=== PATIENT | female | born 1995 | race Caucasian/White ===

== ENCOUNTER → 2018-07-12 | Outpatient (CLI) | payer OTHER | END | disposition home or self-care (01) | LOC: LAB SHORT 12:28 → PLD 12:28 | DX: R87.611 Atypical squamous cells cannot exclude high grade squamous intraepithelial lesion on cytologic smear of cervix (ASC-H) (principal) | CPT/HCPCS: 88305 ==

== ENCOUNTER → 2018-08-30 | Outpatient (CLI) | payer OTHER | END | disposition home or self-care (01) | LOC: LAB SHORT 12:43 → PLD 12:43 | DX: D06.9 Carcinoma in situ of cervix, unspecified (principal) | CPT/HCPCS: 88307 ==

== ENCOUNTER → 2019-06-12 | Outpatient (CLI) | payer OTHER ==
[2019-06-12 17:26] LABS: Source, Urine Clean Catch
[2019-06-12 18:53] LABS: Bilirubin, Urine Neg (Neg); Blood, Urine 3+ (Neg); Glucose Qualitative, Urine Neg (Neg); Ketones, Urine Neg (Neg); Leukocyte Esterase, Urine 2+ (Neg); Nitrite, Urine Neg (Neg); Protein, Urine Neg (Neg); Urobilinogen, Urine NORM (Normal)
[2019-06-12 19:08] LABS: Appearance, Urine Hazy (Clear); Color, Urine Amber (P-Yellow)
[2019-06-12 19:09] LABS: Amorphous Light (0-Heavy); Bacteria Many /hpf; Mucus Mod (0-Heavy); Squamous Epithelial Cells Mod /hpf (Few)
== END | disposition home or self-care (01) ==
LOC: LAB SHORT 15:40 → LAB 15:40
PROVIDERS: Obstetrics & Gynecology
DX: N89.8 Other specified noninflammatory disorders of vagina (principal)
CPT/HCPCS: 81001; 87086

== ENCOUNTER 2020-06-08 13:21 | Emergency (ER) | payer OTHER ==
[~2020-06-08] VITALS: Ht 167.6 cm; Wt 90.7 kg
[2020-06-08] MEDS ORDERED: Depo-Prove150 MG/11 IM (14:44)
[2020-06-08] MEDS ORDERED: Ativan1 MG PO (14:59)
[2020-06-08] MEDS ORDERED: ERYT.5TO BOTHEYES (14:59)
== END 2020-06-08 15:11 | disposition home or self-care (01) ==
LOC: ER 13:21
DX: H00.016 Hordeolum externum left eye, unspecified eyelid (principal); F41.9 Anxiety disorder, unspecified; F17.200 Nicotine dependence, unspecified, uncomplicated; Z79.3 Long term (current) use of hormonal contraceptives
CPT/HCPCS: 99283

== ENCOUNTER → 2021-12-26 | Outpatient (CLI) | payer OTHER ==
[~2021-12-26] MED LIST: Ativan1 MG PO; Depo-Prove150 MG/11 IM; ERYT.5TO BOTHEYES
== END | disposition home or self-care (01) ==
LOC: LAB SHORT 17:26 → LAB 17:26
DX: L73.2 Hidradenitis suppurativa (principal)
CPT/HCPCS: 87070; 87077; 87147; 87186; 87205

== ENCOUNTER → 2022-02-06 | Outpatient (CLI) | payer OTHER ==
[2022-02-11 15:10] LABS: HPV 16 Negative (Negative); HPV 18 Negative (Negative); HPV OTHER HR TYPES Negative (Negative)
== END | disposition home or self-care (01) ==
LOC: LAB 16:45 → LAB SHORT 16:45
PROVIDERS: Registered Nurse
DX: Z01.419 Encounter for gynecological examination (general) (routine) without abnormal findings (principal)
CPT/HCPCS: 87624; G0123

== ENCOUNTER 2022-06-20 07:51 | Emergency (ER) | payer OTHER ==
[~2022-06-20] VITALS: Ht 170.2 cm; Wt 82.5 kg
[2022-06-20] MEDS ORDERED: DEXTROAMPHETAMI10 M1 PO (08:08)
[2022-06-20] MEDS ORDERED: Norflex100 MG (08:08)
[2022-06-20] MEDS ORDERED: DESV50 PO (08:09)
[2022-06-20] MEDS ORDERED: Neurontin 100100 MG PO (08:21)
[2022-06-20] MEDS ORDERED: Robaxin750 MG PO (08:21)
== END 2022-06-20 08:42 | disposition home or self-care (01) ==
LOC: ER 07:51
DX: M54.50 Low back pain, unspecified (principal); F17.200 Nicotine dependence, unspecified, uncomplicated; Z79.899 Other long term (current) drug therapy
CPT/HCPCS: 99283

== ENCOUNTER 2022-09-27 14:08 | Observation (INO) | payer OTHER ==
[~2022-09-27] VITALS: Ht 167.6 cm; Wt 85.8 kg
[~2022-09-27 14:08] MED LIST changes: +DESV50 PO; +DEXTROAMPHETAMI10 M1 PO; +Neurontin 100100 MG PO; +Norflex100 MG; +Robaxin750 MG PO
[2022-09-27 18:29] VITALS: BP 114/77
[2022-09-27] MEDS ORDERED: PRED20 PO (18:35)
[2022-09-27] MEDS ORDERED: NAPR500 PO (18:37)
--- NOTE | 2022-09-27 18:48 | NUR ---
RN NOTE MS KELLER ARRIVED TO MEDICAL UNIT AT 1830HRS. SHE TRANSFERED BY ROLLING ONTO BED FROM [facility]. CURRENTLY NO BACK PAIN LYING STILL AFTER OXY. SHE HAS NOT VOIDED SINCE YESTERDAY, FEELS THE URGE TO VOID. REPORT TO NIGHT RN.
[2022-09-27 19:25] VITALS: BP 111/68
[2022-09-28 02:17] VITALS: BP 97/59
[2022-09-28 07:47] VITALS: BP 101/63
[2022-09-28 13:23] VITALS: BP 117/73
[2022-09-28] MEDS ORDERED: HYDROCODONE-AC1 EA19 PO (14:22)
--- NOTE | 2022-09-28 15:23 | NUR ---
DISCHARGE NOTE- PT WAS GIVEN VERBAL AND WRITTEN DISCHARGE INSTRUCTIONS AND ACKNOWLEDGED UNDERSTANDING OF THEM. HARD COPY SCRIPT FOR [facility] PROVIDED WELL MD NOTE FOR RETURN TO WORK. PT WAS ESCORTED OUT VIA WC BY THE DIRECTOR AND PROFESSOR NO S&S OF DISTRESS AT THE TIME OF DISCHARGE.
== END 2022-09-28 15:17 | disposition home or self-care (01) ==
LOC: ER 14:08 → MEDS 14:09 → ENPENDDIS 09-28 15:14 → MEDS 09-28 15:17
PROVIDERS: ADMIT Internal Medicine
DX: M51.16 Intervertebral disc disorders with radiculopathy, lumbar region (principal); F43.10 Post-traumatic stress disorder, unspecified; F90.9 Attention-deficit hyperactivity disorder, unspecified type; F17.200 Nicotine dependence, unspecified, uncomplicated; Z79.899 Other long term (current) drug therapy
CPT/HCPCS: 72148; 96361; 96374; 96375; 97162; 97530; 99284-25; A9270; G0378; J1170; J1885; J2060; J2405; J7120; J7512

== ENCOUNTER 2022-10-03 00:44 | Emergency (ER) | payer OTHER ==
[~2022-10-03] VITALS: Ht 167.6 cm; Wt 86.2 kg
[~2022-10-03 00:44] MED LIST changes: +HYDROCODONE-AC1 EA19 PO; +NAPR500 PO; +PRED20 PO
[2022-10-03] MEDS ORDERED: PREGABALIN75 MG PO (01:44)
[2022-10-03] MEDS ORDERED: Robaxin750 MG PO (05:30)
[2022-10-03 05:42] VITALS: BP 128/74
== END 2022-10-03 05:44 | disposition home or self-care (01) ==
LOC: ER 00:44
DX: M51.16 Intervertebral disc disorders with radiculopathy, lumbar region (principal); F17.210 Nicotine dependence, cigarettes, uncomplicated; Z79.52 Long term (current) use of systemic steroids
CPT/HCPCS: 99283; A9270

== ENCOUNTER → 2023-01-15 | Outpatient (CLI) | payer OTHER ==
[~2023-01-15] MED LIST changes: +CYCL10 PO; +OXYC5 PO; +PREGABALIN75 MG PO
[2023-01-20 12:08] LABS: HPV 16 Negative (Negative); HPV 18 Negative (Negative); HPV OTHER HR TYPES Negative (Negative)
== END ==
LOC: LAB SHORT 16:56 → LAB 16:56
PROVIDERS: Obstetrics & Gynecology
DX: Z01.419 Encounter for gynecological examination (general) (routine) without abnormal findings (principal)
CPT/HCPCS: 87624; G0145

== ENCOUNTER → 2023-01-15 | Outpatient (CLI) | payer OTHER ==
[2023-01-15 20:39] LABS: Candida species (DNA Probe) Positive (NEGATIVE); G. vaginalis (DNA Probe) Negative (NEGATIVE); T. vaginalis (DNA Probe) Negative (NEGATIVE)
== END ==
LOC: LAB 16:47 → LAB SHORT 16:47
PROVIDERS: Obstetrics & Gynecology
DX: N76.0 Acute vaginitis (principal)
CPT/HCPCS: 87480; 87510; 87660

== ENCOUNTER → 2023-05-04 | Outpatient (CLI) | payer OTHER | LOC: LAB SHORT 11:19 → LAB 11:19 | DX: L08.0 Pyoderma (principal) | CPT/HCPCS: 87070; 87205 ==

== ENCOUNTER → 2024-03-03 | Outpatient (CLI) | payer OTHER ==
[2024-03-10 08:10] LABS: HPV HIGH RISK BY TMA Not Detected; HPV SOURCE Cervical/Vag
== END ==
LOC: LAB SHORT 09:00 → LAB 09:00
PROVIDERS: Obstetrics & Gynecology
DX: Z01.419 Encounter for gynecological examination (general) (routine) without abnormal findings (principal)
CPT/HCPCS: 87624; G0123